=== PATIENT | female | born 1975 | race Caucasian/White ===

== ENCOUNTER 2017-11-28 14:57 | Emergency (ER) | payer BC ==
[2017-11-28 16:22] VITALS: BP 122/80
[2017-11-28] MEDS ORDERED: Cephalexin CAP* 500 MG PO ONE (17:12)
--- NOTE | 2017-11-28 17:14 | UC ---
Throat Pain/Nasal Óscar HPI - HPI Summary HPI Summary: nasal congestion and cough for a week, now feels like it is in her chest, hard to take a deep breath, no fever. - History of Current Complaint Chief Complaint: UCGeneralIllness Stated Complaint: EAR/CONGESTION/COUGH Time Seen by Provider: 11/28/17 17:05 Hx Obtained From: Patient Hx Last Menstrual Period: 2 WKS AGO ?: No Onset/Duration: Sudden Onset, Lasting Days Severity: Moderate Cough: Productive Associated Signs & Symptoms: Positive: Dysphagia, Wheezing, Sinus Discomfort, Nasal Discharge - Allergies/Home Medications Allergies/Adverse Reactions: Allergies Allergy/AdvReac Type Severity Reaction Status Date / Time Tetracycline Allergy Anaphylatic Verified 11/28/17 16:22 Shock PMH/Surg Hx/FS Hx/Imm Hx Previously Healthy: Yes - Surgical History Surgical History: Yes Surgery Procedure, Year, and Place: THYROID SX - Family History Known Family History: Positive: Cardiac Disease, Hypertension - Social History Alcohol Use: Rare Substance Use Type: None Smoking Status (MU): Never Smoked Tobacco Review of Systems Constitutional: Fatigue Skin: Negative Eyes: Negative ENT: Sore Throat, Ear Ache, Nasal Discharge, Sinus Congestion, Sinus Pain/ Tenderness Respiratory: Shortness Of Breath, Cough Cardiovascular: Negative Gastrointestinal: Negative Genitourinary: Negative Motor: Negative Neurovascular: Negative Musculoskeletal: Negative Neurological: Headache Psychological: Negative Is Patient Immunocompromised?: No All Other Systems Reviewed And Are Negative: Yes Physical Exam Triage Information Reviewed: Yes Appearance: Well-Nourished, Ill-Appearing, Pain Distress Vital Signs: Initial Vital Signs Temp 98.3 F 11/28/17 16:13 Pulse 56 11/28/17 16:13 Resp 16 11/28/17 16:13 BP 122/80 11/28/17 16:13 Pulse Ox 98 11/28/17 16:13 Vital Signs Reviewed: Yes Eye Exam: Normal ENT: Positive: Pharyngeal erythema, Nasal congestion, Nasal drainage, TM bulging , Sinus tenderness Dental Exam: Normal Neck exam: Normal Neck: Positive: Supple, Nontender, No Lymphadenopathy Respiratory Exam: Normal Respiratory: Positive: Chest non-tender, Lungs clear, Normal breath sounds Cardiovascular Exam: Normal Cardiovascular: Positive: RRR, No Murmur, Pulses Normal Abdominal Exam: Normal Abdomen Description: Positive: Nontender, No Organomegaly, Soft Bowel Sounds: Positive: Present Musculoskeletal Exam: Normal Musculoskeletal: Positive: Strength Intact, ROM Intact, No Edema Neurological Exam: Normal Neurological: Positive: Alert, Muscle Tone Normal Psychological Exam: Normal Skin Exam: Normal Throat Pain/Nasal Course/Dx - Course Course Of Treatment: hx obtained, exam performed ,meds reviewed, treated for bronchitis. - Differential Dx/Diagnosis Differential Diagnosis/HQI/PQRI: Otitis Media, Pharyngitis, Sinusitis, URI Provider Diagnoses: bronchitis Discharge - Discharge Plan Condition: Stable Disposition: HOME Patient Education Materials: Acute Bronchitis (ED) Referrals: Mkie Weiss MD [Primary Care Provider] - Additional Instructions: 1. start the prednisone in the morning 2. You received yoru first does of antibiotic today, start again in the morning. 3. Increase fluids, warm compresses to the sinuses and get plenty of rest.
== END 2017-11-28 17:34 | disposition home or self-care (01) ==
LOC: UCCORT 14:57
DX: J40 Bronchitis, not specified as acute or chronic (principal)
CPT/HCPCS: 99212; A9270-GY; G0463

== ENCOUNTER 2017-12-14 17:48 | Emergency (ER) | payer BC | END 2017-12-14 19:44 | disposition left against medical advice (07) | LOC: UCEAST 17:48 | DX: S69.90XA Unspecified injury of unspecified wrist, hand and finger(s), initial encounter (principal); X58.XXXA Exposure to other specified factors, initial encounter; Y93.9 Activity, unspecified; Y92.9 Unspecified place or not applicable; Z53.21 Procedure and treatment not carried out due to patient leaving prior to being seen by health care provider ==

== ENCOUNTER 2019-03-31 18:22 | Emergency (ER) | payer BC ==
[2019-03-31 19:29] VITALS: BP 113/78
--- NOTE | 2019-03-31 20:15 | UC ---
General HPI - HPI Summary HPI Summary: pt found a tick on her L side in shower this am. she removed it partly and then a friend who is a nurse removed the rest. no fever or joint pains. area is a little red. she notes the tick looked a little swollen. duration of bite is not known. - History of Current Complaint Chief Complaint: [place] Stated Complaint: TICK BITE Time Seen by Provider: 03/31/19 19:57 Hx Obtained From: Patient Hx Last Menstrual Period: ~ 6 wks Pain Intensity: 2 - Allergy/Home Medications Allergies/Adverse Reactions: Allergies Allergy/AdvReac Type Severity Reaction Status Date / Time tetracycline Allergy Anaphylatic Verified 03/31/19 19:20 Shock Home Medications: Home Medications Levothyroxine Sodium [Synthroid] 224 mcg PO DAILY 03/31/19 [History Confirmed ] PMH/Surg Hx/FS Hx/Imm Hx Endocrine History: Thyroid Disease - Surgical History Surgical History: Yes Surgery Procedure, Year, and Place: THYROID SX - Family History Known Family History: Positive: Cardiac Disease, Hypertension - Social History Lives: With Family Alcohol Use: Rare Substance Use Type: None Smoking Status (MU): Never Smoked Tobacco Review of Systems All Other Systems Reviewed And Are Negative: No Constitutional: Negative: Fever Skin: Negative: Rash Musculoskeletal: Negative: Arthralgia Neurological: Negative: Weakness, Paresthesia, Numbness Physical Exam Triage Information Reviewed: Yes Appearance: Well-Appearing Vital Signs: Initial Vital Signs Temp 97.6 F 03/31/19 19:22 Pulse 56 03/31/19 19:22 Resp 14 03/31/19 19:22 BP 113/78 03/31/19 19:22 Pulse Ox 99 03/31/19 19:22 Vital Signs Reviewed: Yes Eyes: Positive: Conjunctiva Clear Respiratory: Positive: No respiratory distress Musculoskeletal: Positive: ROM Intact Neurological: Positive: Alert Psychological: Positive: Age Appropriate Behavior Skin Exam: Normal, Other - 1cm pink area where tick removed but no bullseye. Course/Dx - Differential Dx - Multi-Symptom Differential Diagnoses: Other - pt had anaphylactic reaction tetracycline class thus doxycycline 200mg was not given. - Diagnoses Provider Diagnosis: Tick bite Discharge - Sign-Out/Discharge Documenting (check all that apply): Patient Departure All imaging exams completed and their final reports reviewed: No Studies - Discharge Plan Condition: Stable Disposition: HOME Patient Education Materials: Tick Bite (ED) Referrals: Mike Weiss MD [Primary Care Provider] - If Needed - Billing Disposition and Condition Condition: STABLE Disposition: Home
== END 2019-03-31 20:21 | disposition home or self-care (01) ==
LOC: UCCORT 18:22
DX: T14.8XXA Other injury of unspecified body region, initial encounter (principal); W57.XXXA Bitten or stung by nonvenomous insect and other nonvenomous arthropods, initial encounter; Y92.9 Unspecified place or not applicable; E07.9 Disorder of thyroid, unspecified; Z79.899 Other long term (current) drug therapy; Z88.1 Allergy status to other antibiotic agents
CPT/HCPCS: 99211; G0463